=== PATIENT | female | born 1960 | race Caucasian/White ===

== ENCOUNTER 2017-09-22 09:09 | Day surgery (SDC) | payer OTHER ==
[2017-09-22] MEDS ORDERED: LIDOCAINE 1% 2 ML INJ ID PRN (09:21)
[2017-09-22] MEDS ORDERED: LR 1,000 ML IV ONE (09:21)
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
[2017-09-22] MEDS ORDERED: NALOXONE HCL 0.4 MG/ML INJ IVP PRN (12:14)
[2017-09-22] MEDS ORDERED: HYDROCODONE/APAP 5/325 TAB PO PRN (12:14)
[2017-09-22] MEDS ORDERED: PROMETHAZINE HCL 25 MG/ML INJ IVP PRN (12:14)
[2017-09-22] MEDS ORDERED: MEPERIDINE 25 MG/ML SYR IVP PRN (12:14)
[2017-09-22] MEDS ORDERED: ONDANSETRON 4 MG/2 ML VIAL IVP PRN (12:14)
[2017-09-22] MEDS ORDERED: LR 500 ML IV PRN (12:14)
[2017-09-22] MEDS ORDERED: ACETAMINOPHEN 500 MG TAB PO PRN (12:14)
[2017-09-22] MEDS ORDERED: PHENYLEPHRINE HCL 100 MCG/ML SYR IVP PRN (12:14)
[2017-09-22] MEDS ORDERED: epHEDrine SULFATE 10 MG/ML SYR IVP PRN (12:14)
[2017-09-22] MEDS ORDERED: fentaNYL 100 MCG/2 ML INJ ONE (12:32)
[2017-09-22] MEDS ORDERED: PROPOFOL/EMULSION 500 MG/50 ML BOTTLE IV ONE (12:32)
--- NOTE | 2017-09-22 12:36 | PDGENHP ---
History and Physical - Chief Complaint screening for colon cancer, globus and chest discomfort - History of Present Illness pleasant 56yr old with family hx of colon cancer, due for colon cancer screening. Also reports some chest discomfort with meals and early satiety with globu. History Information - Allergies/Home Medication List Allergies/Adverse Reactions: No Known Allergies Allergy (Verified 09/21/17 12:16) Home Medications: ALPRAZolam PRN 09/21/17 [Last Taken 09/15/17] Citalopram 09/21/17 [Last Taken 09/22/17 06:30] Tylenol Extra Strength 09/21/17 [Last Taken 09/17/17] ZOLPIDEM TARTRATE 09/21/17 [Last Taken 09/20/17] I have personally reviewed and updated: family history, medical history, social history, surgical history - Past Medical History Additional medical history: anxiety. depression - Surgical History Reports: no pertinent surgical hx - Family History Additional family history: colon cancer, father, age 60 - Social History Smoking Status: Former smoker Alcohol Use: Rarely Drug Use: None Review of Systems Review of Systems: ROS: 10pt was reviewed & negative except for what was stated in HPI & below Physical Exam Physical Exam: Temp Pulse Resp BP Pulse Ox 36.5 C 69 97 H 103/69 09/22/17 09:55 09/22/17 10:44 09/22/17 10:44 09/22/17 10:44 Constitutional: no apparent distress Eyes: PERRL Ears, Nose, Mouth, Throat: moist mucous membranes Cardiovascular: regular rate and rhythym Respiratory: no respiratory distress Gastrointestinal: normoactive bowel sounds Skin: warm Assessment & Plan Assessment: globus screening Plan: egd and colonoscopy need anesthesia given anxiety and chronic benzo use
--- NOTE | 2017-09-22 13:12 | GIREPORT ---
[facility] - Endoscopy Department Patient Name: Lashaun Lacy Procedure Date: 09/22/2017 10:35 AM Patient Type: Outpatient Attending MD/ ER Physician: Yoni Chris MD Procedure: Upper GI endoscopy Indications: Epigastric abdominal pain, Functional Dyspepsia, Globus sensation Providers: Yoni Chris MD Medicines: Sedation Administered by an Anesthesia Professional Complications: No immediate complications. Description of Procedure: After obtaining informed consent, the endoscope was passed under direct vision. Throughout the procedure, the patient's blood pressure, pulse, and oxygen saturations were monitored continuously. The Endoscope was intro duced through the mouth, and advanced to the third part of duodenum. The uppe r GI endoscopy was accomplished without difficulty. The patient tolerated th e procedure well. Findings: The examined esophagus was normal. Diffuse mild inflammation characterized by congestion (edema) and eryth ishmael was found in the entire examined stomach. Biopsies were taken with a co ld forceps for histology. The examined duodenum was normal. Estimated Blood Loss: Estimated blood loss: none. Post Op Diagnosis: - Normal esophagus. - Gastritis. Biopsied. - Normal examined duodenum. Recommendation: - Written discharge instructions were provided to the patient. - The signs and symptoms of potential delayed complications were discus sed with the patient. - Patient has a contact number available for emergencies. - Return to normal activities tomorrow. - Await pathology results. - No clear source of symptoms. Consider GERD therapy. Await biopsy resu lts. Attending Participation: I personally performed the entire procedure. Yoni Chris MD Yoni Chris MD 09/22/2017 1:12:39 PM This report has been signed electronicallyDaus Dot MD Number of Addenda: 0 Note Initiated On: 09/22/2017 10:35 AM Total Procedure Duration Time 0 hours 2 minutes 56 seconds [email or web address]
--- NOTE | 2017-09-22 13:17 | GIREPORT ---
[facility] - Endoscopy Department Patient Name: Lashaun Lacy Procedure Date: 09/22/2017 10:36 AM Patient Type: Outpatient Attending MD/ ER Physician: Yoni Chris MD Procedure: Colonoscopy Indications: Screening for colorectal malignant neoplasm, Screening patient at incre ased risk: Family history of 1st-degree relative with colorectal cancer - fa ther at age 60 yr Providers: Yoni Chris MD Medicines: Sedation Administered by an Anesthesia Professional Complications: No immediate complications. Description of Procedure: After obtaining informed consent, the scope was passed under direct vis ion. Throughout the procedure, the patient's blood pressure, pulse, and oxyg en saturations were monitored continuously. The Colonoscope with irrigatio n channel was introduced through the anus and advanced to the cecum, identified by appendiceal orifice and ileocecal valve. The colonoscopy was performed without difficulty. The patient tolerated the procedure well. The quality of the bowel preparation was good. The ileocecal valve, appendi ceal orifice, and rectum were photographed. Findings: A 5 mm polyp was found in the ascending colon. The polyp was sessile. T he polyp was removed with a cold biopsy forceps. Resection and retrieval w ere complete. The exam was otherwise without abnormality. Estimated Blood Loss: Estimated blood loss: none. Post Op Diagnosis: - One 5 mm polyp in the ascending colon, removed with a cold biopsy for ceps. Resected and retrieved. - The examination was otherwise normal. Recommendation: - Written discharge instructions were provided to the patient. - The signs and symptoms of potential delayed complications were discus sed with the patient. - Patient has a contact number available for emergencies. - Return to normal activities tomorrow. - Resume previous diet. - Await pathology results. - Repeat colonoscopy in 5 years for surveillance. Attending Participation: I personally performed the entire procedure. Yoni Chris MD Yoni Chris MD 09/22/2017 1:17:02 PM This report has been signed electronicallyDaus Dot MD Number of Addenda: 0 Note Initiated On: 09/22/2017 10:36 AM Total Procedure Duration Time 0 hours 15 minutes 41 seconds [email or web address]
--- NOTE | 2017-09-22 13:17 | POSTANESTH ---
Post Anesthetic Evaluation Cardiovascular Status: Normal, Stable Respiratory Status: Normal, Stable Level of Consciousness/Mental Status: Can Participate in Eval Pain Control: Adequate, Prn Tx Ordered Nausea/Vomiting Control: Adequate, Prn Tx Ordered Complications Possibly Related to Anesthesia: None Noted
[2017-09-22 14:18] VITALS: O2SAT 95
[2017-09-22 14:25] VITALS: PULSE 66; RESP 16; TEMP 98.1
[2017-09-22 15:10] VITALS: BP 113/79
== END 2017-09-22 15:20 | disposition home or self-care (01) ==
LOC: FSGY 09:09
PROVIDERS: ATTEND Internal Medicine Gastroenterology
PROC: 0DB68ZX Excision of Stomach, Via Natural or Artificial Opening Endoscopic, Diagnostic (ICD-10-PCS; principal; 2017-09-22 10:30)
PROC: 0DBK8ZX Excision of Ascending Colon, Via Natural or Artificial Opening Endoscopic, Diagnostic (ICD-10-PCS; principal; 2017-09-22 10:30)
DX: Z12.11 Encounter for screening for malignant neoplasm of colon (principal); K63.5 Polyp of colon; K30 Functional dyspepsia; R68.81 Early satiety; F32.1 Major depressive disorder, single episode, moderate; F41.9 Anxiety disorder, unspecified; Z87.440 Personal history of urinary (tract) infections; Z87.891 Personal history of nicotine dependence; Z80.0 Family history of malignant neoplasm of digestive organs
CPT/HCPCS: J2704; J3010